=== PATIENT | female | born 1995 | race Caucasian/White ===

== ENCOUNTER 2025-05-03 11:54 | Emergency (ER) | payer SELFPAY ==
[2025-05-03] VITALS (8 sets, daily range): BP systolic 91–112; BP diastolic 50–80
[2025-05-03] MEDS: ZOFRAN 4 MG IV (12:11)
[2025-05-03] MEDS: ATIVAN 1 MG IV (12:16)
[2025-05-03 12:21] LABS: % Basophils 0.7 % (0-2); % Eosinophils 0.5 % (0-6); % Immature Granulocytes 0.4 % (0-0.5); % Lymphocytes 14.9 % (20.5-51.1); % Monocytes 4.6 % (1.7-9.3); % Neutrophils 78.9 % (42.2-75.2); Absolute Basophils 0.1 10^3/uL (0-0.2); Absolute Eosinophils 0.1 10^3/uL (0-0.7); Absolute Immature Granulocytes 0.1 10^3/uL (0-0.05); Absolute Lymphocytes 1.8 10^3/uL (1.2-3.4); Absolute Monocytes 0.6 10^3/uL (0.1-0.6); Absolute Neutrophils 9.5 10^3/uL (1.4-6.5); Hematocrit 41.7 % (37.0-47.0); Hemoglobin 14.5 g/dL (12.0-16.0); Mean Corp Hgb Conc. 34.8 g/dL (33.0-37.0); Mean Corpuscular Hgb 30.1 pg (27.0-31.0); Mean Corpuscular Volume 86.7 fL (81.0-99.0); Mean Platelet Volume 9.5 fL (7.4-10.4); Nucleated Red Blood Cells % 0 %; Platelet Count 346 10^3/uL (130-400); Red Blood Cell Count 4.81 10^6/uL (4.20-5.40); Red Cell Dist. Width 12.4 % (11.5-14.5); White Blood Cell Count 12.1 10^3/uL (4.8-10.8)
[2025-05-03 12:38] LABS: HCG, Serum Qualitative Screen Negative
--- NOTE | 2025-05-03 12:44 | ED.GENMED ---
History of Present Illness
General
Chief Complaint: Seizure
Source: spouse and other (Physician from patient's employment office)
Exam Limitations: none
Time Seen by Provider: 05/03/25 11:58
History of Present Illness
History of Present Illness:
30-year-old female apparently had a grand mal seizure at work. Per her physician/employer, she sat in a chair stared was red to the face lowered to the floor and then had a 1 minute tonic-clonic seizure. She was postictal after this. She has a
history of seizures. She is on Keppra. She stopped it 2 months ago due to possible side effects of making her have anger issues.
Past History
Past History
ED Past Medical History: Seizures
Review of Systems
Review of Systems
All Other Systems: Not applicable
Respiratory: Reports no symptoms
Cardiac: Reports no symptoms
Phy Exam
Physical Exam
Physical Exam:
GENERAL: Alert and oriented in no apparent distress. Normocephalic atraumatic
EYE: Orbits normal.
NECK: Supple, no significant adenopathy.
ENT: Pharynx without erythema
CARDIAC: Regular rate and rhythm without any obvious murmurs.
LUNGS: Clear breath sounds,normal
ABDOMEN: Soft, without focal tenderness or distention
NEUROLOGICAL: Alert. Initially groggy and mildly cognitively off consistent with postictal state. However slowly improved and returned to baseline.
SKIN: Warm and dry, no rash or lesion, no discoloration, skin intact.
MUSCULOSKELETAL: No edema,no deformity.Good color
PSYCH: Normal and appropriate interaction.
Course
Orders/Labs/Results
Orders:
Orders
05/03/25 12:00
EKG [Electrocardiogram (*1)] Urgent
Reason for Study: Vertigo / Dizzy
05/03/25 12:01
EKG- Treatment ONCE
05/03/25 12:04
Test Result ONCE
05/03/25 12:05
Lorazepam [Ativan] 2 mg .ROUTE .STK-MED ONE
05/03/25 12:06
Ondansetron Injectable [Zofran] 4 mg .ROUTE .STK-MED ONE
05/03/25 12:11
Ondansetron Injectable [Zofran] 4 mg IV NOW STA
05/03/25 12:13
Beta Hcg Serum Qualitative Screen [HCG, Serum Qualitative Screen] Urgent
CMP [Comprehensive Metabolic Panel] Urgent
Complete Blood Count/With Diff Urgent
05/03/25 12:16
0.9% Sodium Chloride [Nss (Preservative Free)] 0.5 ml IV ONCE@1216 ONE
Lorazepam [Ativan] 1 mg IV NOW STA
05/03/25 12:43
Levetiracetam Injectable [Keppra] 1,500 mg IV NOW STA
Abnormal Lab Results
05/03/25
12:13
WBC 12.1 H 10^3/uL
(4.8-10.8)
Abs Immat Gran (auto) 0.1 H 10^3/uL
(0-0.05)
Absolute Neuts (auto) 9.5 H 10^3/uL
(1.4-6.5)
Neutrophils % 78.9 H %
(42.2-75.2)
Lymphocytes % 14.9 L %
(20.5-51.1)
Potassium 3.4 L mmol/L
(3.5-5.1)
Carbon Dioxide 14 L* mmol/L
(22-30)
Glucose 115 H mg/dl
(70-99)
Total Bilirubin 1.6 H mg/dl
(0.2-1.3)
05/03/25 12:13
05/03/25 12:13
Vital Signs
Initial and Last Documented VS:
Initial Vital Signs
Temp Pulse Resp BP Pulse Ox
98.1 F 94 18 109/65 97
05/03/25 11:55 05/03/25 11:55 05/03/25 11:55 05/03/25 11:55 05/03/25 11:55
Last Documented Vital Signs
Temp Pulse Resp BP Pulse Ox
98.1 F 86 21 112/54 95
05/03/25 11:55 05/03/25 17:45 05/03/25 17:45 05/03/25 17:00 05/03/25 17:45
MDM/Problems Addressed
Differential Diagnosis Includes:
Patient with a relatively brief grand mal seizure. No further seizures so far in the ER. She was given 1 dose of Ativan when she felt like possibly a second seizure was coming on. Discussed with patient's neurologist. They recommend restarting
the Keppra pending eventual transition to other antiepileptics. Patient is comfortable with this approach. She will need to have this reported to the DMV
*Pulse Oximetry
SaO2: 97
Oxygen Mode of Delivery: Room air
Patient hypoxic: no
*EKG
Interpreted by ED Provider?: Yes
Interpretation: normal
Comparison EKG: no comparison EKG present
Heart Rate: 87
Rate: normal
Rhythm: sinus
[place]: normal axis
Interval: normal interval
QRS Pattern: normal QRS
Ischemia: non-specific ST changes
*Billiard Table Repairer Interpretation
Rate: normal
Interpretation: normal
Heart Rate: 89
Rhythm: sinus
*Critical Care Note
Total Time (30-74mins, 75-104mins- exclusive of procedures): Not Applicable
Update Note
Update Note:
1240..... Patient has remained stable no further seizures. Discussed with patient's neurologist. All in agreement to restart the Keppra for now. 1500 mg twice daily. She was on 3500 mg/day. He will then see her in follow-up May 11 and discussed
transitioning to another antiepileptic. No driving. Will need to report to the state.
1535... Patient sleeping but easily arousable. Interacting. Will continue observation until she is more alert. Expect discharge with 1500 of Keppra twice daily and follow-up with neurology. She has the meds at home.
ED Attending Note
-
Portions of this chart may have been created with voice recognition software.� Occasional wrong word or��sound alike� substitutions may have occurred due to the inherent limitations of voice recognition software.
Discharge Plan
Departure
Patient Disposition: Home (Routine Discharge)
Date of Disposition: 05/03/25
Time of Disposition: 18:15
Patient with high blood pressure during this ER visit?: No
Discharge Problem:
Seizure
Instructions: Seizures, Adult (DC), BLOOD PRESSURE
Referrals:
NONE,* [Family Provider, Internal Medicine]
Activity Restrictions/Additional Instructions:
Do not drive and cleared all cleared by neurology
Continue your Keppra at 1500 mg twice a day
Dr. Sapp will discuss adjusting your medications with your appointment in early May
Interventions
Interventions:
*Risk Screen - Suicide Last Done: 05/03/25 18:44
*General Assessment Last Done: 05/03/25 14:00
*Neglect/Abuse Screening Last Done: 05/03/25 12:02
*ED- Fall Risk Assessment Last Done: 05/03/25 18:44
*ED COVID-19 Vaccine History Last Done: 05/03/25 14:00
*Nursing Disposition Last Done: 05/03/25 18:44
ED- Cardiac Assessment Last Done: 05/03/25 13:14
ED- Neurological Assessment Last Done: 05/03/25 13:14
ED- Pulmonary Assessment Last Done: 05/03/25 13:14
Discharge Date and Time
Discharge Date/Time: 05/03/25 18:45
Print Language: MAURITANIAN
[2025-05-03] MEDS: KEPPRA 1500 MG IV (12:55)
[2025-05-03 13:14] LABS: AST (SGOT) 31 U/L (14-36); Albumin 4.8 g/dl (3.5-5.0); Alkaline Phosphatase 72 U/L (38-126); Blood Urea Nitrogen 10 mg/dl (7-17); Calcium 9.6 mg/dl (8.4-10.2); Carbon Dioxide 14 mmol/L (22-30); Chloride 104 mmol/L (98-107); Glucose 115 mg/dl (70-99); Sodium 137 mmol/L (135-145); Total Bilirubin 1.6 mg/dl (0.2-1.3); Total Protein 7.5 g/dl (6.3-8.2); eGFR > 60.00
[2025-05-03 13:54] LABS: ALT (SGPT) 31 U/L (0-35); Potassium 3.4 mmol/L (3.5-5.1)
== END 2025-05-03 18:45 | disposition home or self-care (01) ==
LOC: EMR 11:54
PROVIDERS: EMERGENCY PHYSICIAN Emergency Medicine
DX: G40.409 Other generalized epilepsy and epileptic syndromes, not intractable, without status epilepticus (principal); Z79.899 Other long term (current) drug therapy
CPT/HCPCS: 96374; 96375; 99284; 80053; 84703; 85025; 93005